=== PATIENT | female | born 1975 | race Caucasian/White ===

== ENCOUNTER 2016-09-06 20:54 | Emergency (ER) | payer OTHER | END 2016-09-06 23:14 | disposition home or self-care (01) | LOC: ER 20:54 | DX: S60.221A Contusion of right hand, initial encounter (principal); V89.2XXA Person injured in unspecified motor-vehicle accident, traffic, initial encounter; Y92.413 State road as the place of occurrence of the external cause | CPT/HCPCS: 73130; 99283; 99283-25 ==